=== PATIENT | female | born 1965 | race Caucasian/White ===

== ENCOUNTER 2022-03-09 09:12 | Outpatient (CLI) | payer BC ==
[2022-03-09] MEDS ORDERED: Magnevist 469MG/ML 20 ML VIAL ONE (10:13)
== END 2022-03-09 09:13 | disposition home or self-care (01) ==
LOC: MRI 09:12
PROVIDERS: ATTEND Neurological Surgery
DX: M54.50 Low back pain, unspecified (principal); M47.816 Spondylosis without myelopathy or radiculopathy, lumbar region; M51.86 Other intervertebral disc disorders, lumbar region; Z98.890 Other specified postprocedural states; Z85.43 Personal history of malignant neoplasm of ovary
CPT/HCPCS: 72100; 72158; A9579